=== PATIENT | male | born 1980 | race Caucasian/White ===

== ENCOUNTER 2017-04-17 00:10 | Emergency (ER) | payer OTHER ==
[2017-04-17] MEDS ORDERED: ONDANSETRON 4 MG/2 ML VIAL IVP ONE (00:42)
[2017-04-17] MEDS ORDERED: ACETAMINOPHEN 500 MG TAB PO ONE (00:42)
[2017-04-17] MEDS ORDERED: NS 1,000 ML IV ONE (00:42)
--- NOTE | 2017-04-17 01:41 | EDPHY ---
H & P Stated Complaint: fever, thinks he may have malaria, just returned from [facility] Time Seen by Provider: 04/17/17 00:31 HPI/ROS: Chief Complaint: Fever, diarrhea HPI: 36-year-old male who return from a 9 day trip to [facility] today. Two days ago patient started developing some achiness in his shoulders and some nausea. Today his nausea got worse. He started having diarrhea and had 2 watery stools today. Is having some mild low back pain. Had some shaking fevers. He does state that he was bitten by mosquitos and is worried about possible malaria. He did drink bottled water but he did eat solids and drink ice cubes. No abdominal pain. No chest pain or shortness of breath. No neck pain or stiffness. No headache. No bloody diarrhea. No melena. ROS: 10 point Review of Systems is negative except as noted in the HPI. 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 Social History: No smoking, occasional alcohol, occasional marijuana Family History: non-contributory Physical Exam: Gen: Awake, Alert, No Distress HEENT: Nose: no rhinorrhea Eyes: PERRLA, EOMI Mouth: Moist mucosa Neck: Supple, no JVD Chest: nontender, lungs clear to auscultation Heart: S1, S2 normal, no murmur Abd: Soft, non-tender, no guarding Back: no CVA tenderness, no midline tenderness Ext: no edema, non-tender Skin: no rash Neuro: CN II-XII intact, Sensation grossly intact, Strength 5/5 in bilateral upper and lower extremities - Personal History Current Tetanus/Diphtheria Vaccine: No - Medical/Surgical History Hx Asthma: No Hx Chronic Respiratory Disease: No Hx Diabetes: No Hx Cardiac Disease: No Hx Renal Disease: Yes Hx Cirrhosis: No Hx Alcoholism: No Hx HIV/AIDS: No Hx Splenectomy or Spleen Trauma: No Other PMH: PSHx: L nephrectomy (donated). PMHx: denies - Social History Smoking Status: Never smoked Constitutional: Initial Vital Signs Temperature (C) 38.9 C H 04/17/17 00:15 Heart Rate 118 H 04/17/17 00:15 Respiratory Rate 16 04/17/17 00:15 Blood Pressure 106/67 04/17/17 00:15 O2 Sat (%) 95 04/17/17 00:15 O2 Delivery Mode Room Air Allergies/Adverse Reactions: No Known Allergies Allergy (Unverified 12/26/13 01:09) Home Medications: Medication Instructions Recorded NK [No Known Home Meds] 12/26/13 Medical Decision Making ED Course/Re-evaluation: 36-year-old with fever after returning from a trip to [facility]. He has had 2 loose stools but no profuse diarrhea. He has a soft benign abdomen. A very benign physical examination. Given he was traveling to [facility] for malaria and is febrile will check malaria smear. CBC. Will also check of flu. Patient has a leukocytosis with a left shift but no focal infection. Influenza is negative. Lungs are clear. He has had no cough. Abdomen is soft and benign. He has no neck pain or meningismus. Malaria smear is negative. Symptoms are likely consistent with a traveler's diarrhea with a viral illness. He will be discharged with instructions to follow up with his primary care physician in 2-3 days. Return for worsening. - Data Points Laboratory Results: Laboratory Results 04/17/17 00:30 04/17/17 00:30 04/17/17 04/17/17 04/17/17 00:55 00:30 00:30 WBC 11.78 10^3/uL H 10^3/uL (3.80-9.50) RBC 4.89 10^6/uL 10^6/uL (4.40-6.38) Hgb 15.3 g/dL g/dL (13.7-17.5) Hct 43.6 % % (40.0-51.0) MCV 89.2 fL fL (81.5-99.8) MCH 31.3 pg pg (27.9-34.1) MCHC 35.1 g/dL g/dL (32.4-36.7) RDW 12.1 % % (11.5-15.2) Plt Count 217 10^3/uL 10^3/uL (150-400) MPV 10.3 fL fL (8.7-11.7) Neut % (Auto) 89.5 % H % (39.3-74.2) Lymph % (Auto) 3.7 % L % (15.0-45.0) [place] % (Auto) 5.9 % % (4.5-13.0) Eos % (Auto) 0.1 % L % (0.6-7.6) Baso % (Auto) 0.2 % L % (0.3-1.7) Nucleat RBC Rel Count 0.0 % % (0.0-0.2) Absolute Neuts (auto) 10.54 10^3/uL H 10^3/uL (1.70-6.50) Absolute Lymphs (auto) 0.44 10^3/uL L 10^3/uL (1.00-3.00) Absolute Monos (auto) 0.70 10^3/uL 10^3/uL (0.30-0.80) Absolute Eos (auto) 0.01 10^3/uL L 10^3/uL (0.03-0.40) Absolute Basos (auto) 0.02 10^3/uL 10^3/uL (0.02-0.10) Absolute Nucleated RBC 0.00 10^3/uL 10^3/uL (0-0.01) Immature Gran % 0.6 % % (0.0-1.1) Immature Gran # 0.07 10^3/uL 10^3/uL (0.00-0.10) Sodium 137 mEq/L mEq/L (134-144) Potassium 3.8 mEq/L mEq/L (3.5-5.2) Chloride 102 mEq/L mEq/L (97-110) Carbon Dioxide 20 mEq/l L mEq/l (22-31) Anion Gap 15 mEq/L mEq/L (8-16) BUN 16 mg/dL mg/dL (7-23) Creatinine 1.3 mg/dL mg/dL (0.7-1.3) Estimated GFR > 60 Glucose 109 mg/dL H mg/dL (70-100) Calcium 10.2 mg/dL mg/dL (8.5-10.4) Total Bilirubin 0.7 mg/dL mg/dL (0.1-1.4) AST 31 IU/L IU/L (17-59) ALT 34 IU/L IU/L (21-72) Alkaline Phosphatase 51 IU/L IU/L (38-126) Total Protein 7.9 g/dL g/dL (6.3-8.2) Albumin 4.5 g/dL g/dL (3.5-5.0) Influenza A & B (PCR) NEGATIVE FOR FLU (NEGATIVE) Malaria Smear Malaria Sm Path Review 04/17/17 00:30 WBC RBC Hgb Hct MCV MCH MCHC RDW Plt Count MPV Neut % (Auto) Lymph % (Auto) [place] % (Auto) Eos % (Auto) Baso % (Auto) Nucleat RBC Rel Count Absolute Neuts (auto) Absolute Lymphs (auto) Absolute Monos (auto) Absolute Eos (auto) Absolute Basos (auto) Absolute Nucleated RBC Immature Gran % Immature Gran # Sodium Potassium Chloride Carbon Dioxide Anion Gap BUN Creatinine Estimated GFR Glucose Calcium Total Bilirubin AST ALT Alkaline Phosphatase Total Protein Albumin Influenza A & B (PCR) Malaria Smear NONE SEEN (NONE SEEN) Malaria Sm Path Review Pending Medications Given: Discontinued Medications Acetaminophen (Tylenol) 1,000 mg PO EDNOW ONE Stop: 04/17/17 00:43 Last Admin: 04/17/17 00:50 Dose: 1,000 mg Sodium Chloride (Ns) 1,000 mls @ 0 mls/hr IV ONCE ONE; Wide Open PRN Reason: Protocol Stop: 04/17/17 00:43 Last Admin: 04/17/17 00:52 Dose: 1,000 mls Ondansetron HCl (Zofran) 4 mg IVP EDNOW ONE Stop: 04/17/17 00:43 Last Admin: 04/17/17 00:50 Dose: 4 mg Departure - Departure Disposition: Home, Routine, Self-Care Clinical Impression: Viral illness Condition: Good Instructions: Viral Syndrome (ED) Additional Instructions: Follow up with primary care physician in 2-3 days for further evaluation. Make sure to drink plenty of fluids. Alternate ibuprofen 400 mg with acetaminophen 1000 mg every 4 hours for fevers, chills, aches or pains. Return to the emergency department for increasing fevers worsening diarrhea, worsening pain, uncontrolled nausea or vomiting, or any other concerns. Referrals: UNKNOWN,NAME [Other] - As per Instructions
[2017-04-17 01:46] LABS: % IMMATURE GRANULYOCYTES 0.6 % (0.0-1.1); ABSOLUTE IMMATURE GRANULOCYTES 0.07 10^3/uL (0.00-0.10); ADD DIFF? NO; ADD MORPH? NO; ADD SCAN? NO; ATYPICAL LYMPHOCYTE FLAG 0 (0-99); FRAGMENT RBC FLAG 0 (0-99); HEMATOCRIT 43.6 % (40.0-51.0); HEMOGLOBIN 15.3 g/dL (13.7-17.5); LEFT SHIFT FLG 10 (0-99); LIPEMIA HEMOLYSIS FLAG 90 (0-99); MEAN CELL HEMOGLOBIN 31.3 pg (27.9-34.1); MEAN CELL HEMOGLOBIN CONCENTR. 35.1 g/dL (32.4-36.7); MEAN CELL VOLUME 89.2 fL (81.5-99.8); MEAN PLATELET VOLUME 10.3 fL (8.7-11.7); PLATELET CLUMPS FLAG 10 (0-99); PLATELET COUNT 217 10^3/uL (150-400); RED BLOOD CELL COUNT 4.89 10^6/uL (4.40-6.38); RED CELL DISTRIBUTION WIDTH 12.1 % (11.5-15.2)
[2017-04-17 01:54] LABS: ALANINE AMINOTRANSFERASE 34 IU/L (21-72); ALBUMIN 4.5 g/dL (3.5-5.0); ALKALINE PHOSPHATASE 51 IU/L (38-126); ANION GAP 15 mEq/L (8-16); ASPARTATE AMINOTRANSFERASE 31 IU/L (17-59); BILIRUBIN,TOTAL 0.7 mg/dL (0.1-1.4); CALCIUM 10.2 mg/dL (8.5-10.4); CARBON DIOXIDE 20 mEq/l (22-31); CHLORIDE 102 mEq/L (97-110); CREATININE 1.3 mg/dL (0.7-1.3); GLOMERULAR FILTRATION RATE > 60; GLUCOSE 109 mg/dL (70-100); POTASSIUM 3.8 mEq/L (3.5-5.2); SODIUM 137 mEq/L (134-144); TOTAL PROTEIN 7.9 g/dL (6.3-8.2)
[2017-04-17 02:31] LABS: MALARIAL PREP NONE SEEN (NONE SEEN)
[2017-04-17 03:12] VITALS: BP 117/75; PULSE 105; RESP 18; TEMP 97.2; O2SAT 93
== END 2017-04-17 03:12 | disposition home or self-care (01) ==
DX: B34.9 Viral infection, unspecified (principal); E86.9 Volume depletion, unspecified
CPT/HCPCS: 96374; J2405